=== PATIENT | female | born 1985 | race Asian ===

== ENCOUNTER 2016-03-29 03:12 | Emergency (ER) | payer BC, OTHER ==
[2016-03-29 03:20] VITALS: BP 122/77
--- NOTE | 2016-03-29 03:29 | ED ---
Throat Pain/Nasal Congestion - HPI Summary HPI Summary: Patient with several days of L lower tooth pain. No allev factors attempted. Denies guerra, diplopia, systemic symptoms. Came for analgesia. 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 Onset/Duration: Gradual Onset Severity: Mild - Allergies/Home Medications Allergies/Adverse Reactions: Allergies Allergy/AdvReac Type Severity Reaction Status Date / Time No Known Allergies Allergy Verified 04/01/13 11:19 PMH/Surg Hx/FS Hx/Imm Hx Previously Healthy: Yes - Immunization History Date of Tetanus Vaccine: Up to date Date of Influenza Vaccine: Fall 2012 Infectious Disease History: No Infectious Disease History: Denies: Traveled Outside the [place] in Last 30 Days - Social History Alcohol Use: None Substance Use Type: Reports: None Smoking Status (MU): Never Smoked Tobacco Review of Systems Negative: Fever, Chills Positive: Dental Pain All Other Systems Reviewed And Are Negative: Yes Physical Exam Triage Information Reviewed: Yes Vital Signs On Initial Exam: Initial Vitals Temp Pulse Resp BP Pulse Ox 98.6 F 91 16 122/77 98 03/29/16 03:18 03/29/16 03:18 03/29/16 03:18 03/29/16 03:18 03/29/16 03:18 Vital Signs Reviewed: Yes Appearance: Positive: Well-Appearing, No Pain Distress Skin: Positive: Warm, Skin Color Reflects Adequate Perfusion, Dry Head/Face: Positive: Normal Head/Face Inspection Eyes: Positive: Normal, EOMI, ALONZO ENT: Positive: Normal ENT inspection Dental: Positive: Gross Decay/Caries @. Negative: Percussion Tenderness @ Neck: Positive: Supple, Nontender, No Lymphadenopathy Respiratory/Lung Sounds: Positive: Clear to Auscultation, Breath Sounds Present Cardiovascular: Positive: Normal, RRR, Pulses are Symmetrical in both Upper and Lower Extremities Musculoskeletal: Positive: Normal, Strength/ROM Intact Neurological: Positive: Normal, Sensory/Motor Intact, Alert, Oriented to Person Place, Time, CN Intact II-III, Reflexes Intact Diagnostics - Vital Signs Vital Signs Temp Pulse Resp BP Pulse Ox 03/29/16 03:18 98.6 F 91 16 122/77 98 - Laboratory Lab Statement: Any lab studies that have been ordered have been reviewed, and results considered in the medical decision making process. EENT Course/Dx - Differential Diagnoses Differential Diagnoses: Dental Caries, Fractured Tooth, Other - Dental caries on tooth 18. Deferred dental block, but would accept antibiotics and oral surgery FU. - Diagnoses Provider Diagnoses: Dental caries Discharge - Discharge Plan Condition: Stable Disposition: HOME Prescriptions: Penicillin VK TAB 500 MG(NF) [Penicillin VK 500 mg Tab(NF)] 500 mg PO QID 10 Days Patient Education Materials: Dental Caries (ED) Referrals: Bhupinder Emerson MD [Doctor of Dental Medicine] - Daniel Queen MD [Primary Care Provider] -
== END 2016-03-29 03:27 | disposition home or self-care (01) ==
LOC: ED 03:12
DX: K02.9 Dental caries, unspecified (principal)
CPT/HCPCS: 99281

== ENCOUNTER 2016-03-29 21:47 | Emergency (ER) | payer OTHER ==
[2016-03-29 21:52] VITALS: BP 110/73
[2016-03-29] MEDS ORDERED: traMADol TAB* 50 MG PO ONE (22:25)
[2016-03-29] MEDS ORDERED: Naproxen TAB* 250 MG PO ONE ×2 (22:25)
--- NOTE | 2016-03-30 00:12 | ED ---
I, Carrington,Lalita, scribed for Chase Montesinos MD on 03/29/16 at 2228 . Throat Pain/Nasal Congestion - HPI Summary HPI Summary: This 30 y/o female presents to ED for gradually worsening dental pain since 2 days ago. PMHx includes asthma but does not include DM. Pt did not report any fever, but temperature of 100.1 F is noted at triage. Pt was seen at [facility] yesterday and sent home with PENVK. Pt returned to ED today due to uncontrollable pain. Biting down makes the pain worse. Pt recently got new dental insurance, and is currently looking for a new dental office to establish her primary care. - History of Current Complaint Chief Complaint: EDDentalPain Time Seen by Provider: 03/29/16 21:56 Hx Obtained From: Patient Onset/Duration: Gradual Onset, Still Present Associated Signs And Symptoms: Positive: Negative Cough: None - Allergies/Home Medications Allergies/Adverse Reactions: Allergies Allergy/AdvReac Type Severity Reaction Status Date / Time No Known Allergies Allergy Verified 04/01/13 11:19 PMH/Surg Hx/FS Hx/Imm Hx Respiratory History: Reports: Hx Asthma - Immunization History Date of Tetanus Vaccine: Up to date Date of Influenza Vaccine: Fall 2012 Infectious Disease History: No Infectious Disease History: Denies: Traveled Outside the [place] in Last 30 Days - Family History Known Family History: Positive: Unknown - Pt is - Social History Alcohol Use: None Hx Substance Use: No Substance Use Type: Reports: None Hx Tobacco Use: No Smoking Status (MU): Never Smoked Tobacco Review of Systems Positive: Fever Positive: Dental Pain Negative: Anxious, Depressed All Other Systems Reviewed And Are Negative: Yes Physical Exam - Summary Physical Exam Summary: General: Comfortable, pleasant, alert HEENT: Moist mucosa. Dental hakeem at left posterior lowest molar. Anterior molar missing. No gum swelling. No trismus. No facial swelling. Neck: soft, supple, no adenopathy, no edema. Heart: S1, S2, RRR, no murmurs, rubs, or gallops. Heart rate 90. Lungs: Clear to auscultation, breathing comfortable, no wheezes or rales Abdominal: Soft, flat, nontender Extremities: No edema, no calf tenderness Neuro: Alert and oriented x 3 Psych: Logical, coherent Triage Information Reviewed: Yes Vital Signs On Initial Exam: Initial Vitals Temp Pulse Resp BP Pulse Ox 100.1 F 103 18 110/73 100 03/29/16 21:49 03/29/16 21:49 03/29/16 21:49 03/29/16 21:49 03/29/16 21:49 Vital Signs Reviewed: Yes Diagnostics - Vital Signs Vital Signs Temp Pulse Resp BP Pulse Ox 03/29/16 21:49 100.1 F 103 18 110/73 100 - Laboratory Lab Statement: Any lab studies that have been ordered have been reviewed, and results considered in the medical decision making process. EENT Course/Dx - Course Assessment/Plan: She has had dental pain for 2 days now. Pt is currently on abx as appropriate. No cellulitis, no swelling. Pt knows to seek dental service as soon as possible. Meanwhile we will help her with pain management with tramadol and naproxen. She will return for worning pain, swelling, and/or high fever. - Differential Diagnoses Differential Diagnoses: Dental Abscess, Dental Caries, Epiglottitis, Mastoiditis , Periorbital/Orbital Cellulitis, Periodontic Abscess, Periodontic Disease, Peritonsillar Ulcer - Diagnoses Provider Diagnoses: Dental caries Discharge - Discharge Plan Condition: Stable Disposition: HOME Prescriptions: Naproxen TAB* [Naprosyn TAB*] 500 mg PO Q8H PRN #21 tab PRN Reason: Pain traMADol TAB* [Ultram*] 50 mg PO Q6HR PRN #20 tab MDD 3 PRN Reason: Pain Patient Education Materials: Toothache (ED) Referrals: Daniel Queen MD [Primary Care Provider] - 2 Days The documentation as recorded by the Carrington adkins Soohyun accurately reflects the service I personally performed and the decisions made by me, Chase Montesinos MD.
== END 2016-03-29 22:50 | disposition home or self-care (01) ==
LOC: ED 21:47
DX: K02.9 Dental caries, unspecified (principal)
CPT/HCPCS: 99282; A9270-GY

== ENCOUNTER 2017-12-25 12:07 | Emergency (ER) | payer OTHER ==
[2017-12-25 13:04] VITALS: BP 116/76
--- NOTE | 2017-12-25 13:21 | UC ---
Bite Injury/Animal HPI - HPI Summary HPI Summary: 32-year-old woman comes in with a chief complaint of finding a tick in her bed. She said it was engorged her concern is that it was on her and it had dropped off. She does have a dog. She checked herself and didn't find any obvious white spots or rashes. No fevers or chills feels well. - History of Current Complaint Chief Complaint: [facility] Stated Complaint: TICK BITE Time Seen by Provider: 12/25/17 13:13 Hx Last Menstrual Period: one month ago Pain Intensity: 0 - Allergies/Home Medications Allergies/Adverse Reactions: Allergies Allergy/AdvReac Type Severity Reaction Status Date / Time No Known Allergies Allergy Verified 12/25/17 13:04 Home Medications: Home Medications Escitalopram (NF) [Lexapro 5 mg (NF)] 1 tab PO DAILY 12/25/17 [History Confirmed 12/25/17] Fluticasone NASAL SPRAY 50MCG* [Flonase NASAL SPRAY 50MCG*] 1 spray INH DAILY [History Confirmed 12/25/17] Meclizine TAB* [Antivert 12.5 TAB*] 0.5 tab PO ONCE PRN 12/25/17 [History Confirmed 12/25/17] Montelukast Sodium TAB* [Singulair 10 MG TAB*] 1 tab PO DAILY 12/25/17 [History Confirmed 12/25/17] PMH/Surg Hx/FS Hx/Imm Hx Psychological History: Anxiety - Surgical History Surgical History: None - Family History Known Family History: Positive: Unknown - Pt is - Social History Alcohol Use: None Substance Use Type: None Smoking Status (MU): Never Smoked Tobacco Review of Systems All Other Systems Reviewed And Are Negative: Yes Constitutional: Positive: Negative Skin: Positive: Negative Eyes: Positive: Negative ENT: Positive: Negative Respiratory: Positive: Negative Cardiovascular: Positive: Negative Gastrointestinal: Positive: Negative Motor: Positive: Negative Neurovascular: Positive: Negative Musculoskeletal: Positive: Negative Neurological: Positive: Negative Psychological: Positive: Negative Is Patient Immunocompromised?: No Physical Exam Triage Information Reviewed: Yes Appearance: Well-Appearing, No Pain Distress, Well-Nourished Vital Signs: Initial Vital Signs Temp 97.9 F 12/25/17 13:01 Pulse 93 12/25/17 13:01 Resp 12 12/25/17 13:01 BP 116/76 12/25/17 13:01 Pulse Ox 100 12/25/17 13:01 Vital Signs Reviewed: Yes Eye Exam: Normal Eyes: Positive: Conjunctiva Clear Neck exam: Normal Neck: Positive: Supple Respiratory Exam: Normal Respiratory: Positive: Lungs clear, Normal breath sounds, No respiratory distress Musculoskeletal Exam: Normal Musculoskeletal: Positive: Strength Intact, ROM Intact Neurological Exam: Normal Neurological: Positive: Alert, Muscle Tone Normal Psychological Exam: Normal Psychological: Positive: Age Appropriate Behavior Skin Exam: Normal Bite Injury Course/Dx - Course Course Of Treatment: not sure if the tick was on the patient. Patient does not have any rash feels well. At this time because the patient's concerned about tick had been on her we will treat her with doxycycline 200 mg single dose. I discussed this with the patient that's what she would like to do. - Differential Dx/Diagnosis Provider Diagnoses: POSSIBLE TICK BITE Discharge - Sign-Out/Discharge Documenting (check all that apply): Patient Departure All imaging exams completed and their final reports reviewed: No Studies - Discharge Plan Condition: Stable Disposition: HOME Prescriptions: DOXYcycline CAP(*) [DOXYcycline 100MG CAP(*)] 200 mg PO ONCE #2 cap Patient Education Materials: Tick Bite (ED) Referrals: Mark Gamez NP [Primary Care Provider] - Additional Instructions: FOLLOW UP WITH YOUR DOCTOR IF NOT COMPLETELY IMPROVED. GET RECHECKED FOR ANY WORSENING OF YOUR CONDITION OR QUESTIONS OR CONCERNS. - Billing Disposition and Condition Condition: STABLE Disposition: Home
== END 2017-12-25 13:32 | disposition home or self-care (01) ==
LOC: UCEAST 12:07
DX: Z03.89 Encounter for observation for other suspected diseases and conditions ruled out (principal)
CPT/HCPCS: 99212; G0463